=== PATIENT | male | born 1995 | race African-American/Black ===

== ENCOUNTER 2019-04-08 22:19 | Emergency (ER) | payer MEDICAID ==
[~2019-04-08] VITALS: Ht 182.9 cm; Wt 70.8 kg
[2019-04-08] MEDS ORDERED: IBUPROFEN 800 MG TAB PO ONE (23:30)
[2019-04-08] MEDS ORDERED: BENZOCAINE (DENTAL) 20 % SPRAY 60ML MT ONE (23:30)
[2019-04-08 23:36] VITALS: BP 122/79
== END 2019-04-08 23:42 | disposition home or self-care (01) ==
LOC: ER 22:25
DX: K08.89 Other specified disorders of teeth and supporting structures (principal); F17.210 Nicotine dependence, cigarettes, uncomplicated

== ENCOUNTER 2020-04-10 06:20 | Emergency (ER) | payer MEDICAID ==
[~2020-04-10] VITALS: Ht 182.9 cm; Wt 74.4 kg
[2020-04-10 07:21] VITALS: BP 142/81
== END 2020-04-10 10:13 | disposition left against medical advice (07) ==
LOC: ER 06:20
DX: J02.9 Acute pharyngitis, unspecified (principal); F17.210 Nicotine dependence, cigarettes, uncomplicated